=== PATIENT | male | born 2000 | race Caucasian/White ===

== ENCOUNTER 2022-06-02 05:13 | Day surgery (SDC) | payer OTHER ==
[2022-05-31 11:32] VITALS: BMI 20.3
[~2022-06-02 05:13] MED LIST: BUPIVACAINE HCL/PF 0.5% (5MG/ML) 10 ML VIAL NR ONE; LIDOCAINE 1%/EPI 1:100000 (20 ML MULTI DOSE VIAL) IJ ONE
[2022-06-02] MEDS ORDERED: BUPIVACAINE HCL/PF 0.5% (5MG/ML) 10 ML VIAL ONE (07:31)
[2022-06-02] MEDS ORDERED: PROPOFOL 20 ML ONE (07:52)
[2022-06-02] MEDS ORDERED: MIDAZOLAM HCL 2 MG/2 ML SINGLE DOSE VIAL ONE (09:47)
[2022-06-02] MEDS ORDERED: ONDANSETRON 4 MG/2 ML VIAL ONE (09:57)
[2022-06-02] MEDS ORDERED: DEXAMETHASONE SOD PHOSPHATE 4 MG/1 ML VIAL ONE (09:57)
[2022-06-02] MEDS ORDERED: ceFAZolin SODIUM 1 GM VIAL ONE (10:00)
[2022-06-02] MEDS ORDERED: KETOROLAC TROMETHAMINE 30 MG/1 ML VIAL ONE (10:09)
[2022-06-02] MEDS ORDERED: BUPIVACAINE HCL/PF 0.5% (5MG/ML) 10 ML VIAL NR ONE (10:25)
[2022-06-02] MEDS ORDERED: LIDOCAINE 1%/EPI 1:100000 (20 ML MULTI DOSE VIAL) IJ ONE (10:25)
[2022-06-02] MEDS ORDERED: MEPERIDINE HCL 25 MG/ML VIAL ONE (10:46)
[2022-06-02] MEDS ORDERED: ONDANSETRON 4 MG/2 ML VIAL IVPUSH PRN (10:48)
[2022-06-02] MEDS ORDERED: oxyCODONE HCL 5 MG TABLET PO PRN (10:48)
[2022-06-02] MEDS ORDERED: MEPERIDINE HCL 25 MG/ML VIAL IVPUSH ONE (10:49)
[2022-06-02] MEDS ORDERED: LACTATED RINGERS SOLUTION 1,000 ML IV SCH (11:00)
[2022-06-02 12:05] VITALS: RESP 20
[2022-06-02 12:12] LABS: BF WBC & OTHER NUCLEATED CELLS 6965 /mm3
[2022-06-02 12:52] LABS: BODY FLUID MONOCYTE 1 %
[2022-06-02 14:00] VITALS: TEMP 98.4
[2022-06-02 14:03] VITALS: BP 113/65; PULSE 71
== END 2022-06-02 14:27 | disposition home or self-care (01) ==
LOC: JASU-SURG 05:13
PROVIDERS: ATTEND Orthopaedic Surgery
PROC: 0SBD4ZX Excision of Left Knee Joint, Percutaneous Endoscopic Approach, Diagnostic (ICD-10-PCS; principal; 2022-06-02 09:30)
DX: M23.92 Unspecified internal derangement of left knee (principal); M65.862 Other synovitis and tenosynovitis, left lower leg
CPT/HCPCS: 87070; 87075; 87205; 88305-TC; 89060; 94760